=== PATIENT | female | born 1960 | race Caucasian/White ===

== ENCOUNTER 2022-03-29 07:49 | Outpatient (CLI) | payer MEDICAID, SELFPAY ==
--- NOTE | 2022-03-29 07:45 | RT.EKG_ITS ---
APPROVED REPORT Exam: Resting ECG Reason for Exam: family hx CAD Patient Location: O HR:66 bpm ECG Measurements Heart Rate 66 AXIS SD 149 P 43 QRSd 97 QRS 29 QT 415 T 92 QTc 435 Conclusion Sinus rhythm...normal P axis, V-rate 50- 99 Borderline T abnormalities, lateral leads...T flat/neg, I aVL V5 V6
== END 2022-03-29 07:50 | disposition home or self-care (01) ==
LOC: DI.CARD 07:51
PROVIDERS: PCP Nurse Practitioner Family; Visit Provider Internal Medicine Cardiovascular Disease
DX: I99.8 Other disorder of circulatory system (principal)
CPT/HCPCS: 93010